=== PATIENT | female | born 1950 ===

== ENCOUNTER 2018-03-27 08:22 | Day surgery (SDC) | payer MEDICARE, MEDICAID ==
[2014-05-23 14:33] VITALS: BMI 30.2
[2018-03-27] MEDS ORDERED: Methylene Blue 10 mg/mL(10ml) IV ONE (10:32)
[2018-03-27] MEDS ORDERED: Bupivacaine 0.25% 20 ML INJ IJ ONE (10:32)
[2018-03-27] MEDS ORDERED: Propofol 10 mg/ml Inj (20 ML) ONE (12:25)
[2018-03-27] MEDS ORDERED: Midazolam 2 MG/2 ML VIAL ONE (12:25)
[2018-03-27] MEDS ORDERED: ceFAZolin 1 gm FROZEN Premix 2 GM/100 ML ML IVPB ONE (12:54)
[2018-03-27] MEDS ORDERED: HYDROmorphone 0.5 mg/0.5 ml ISec IVP PRN (14:26)
[2018-03-27] MEDS ORDERED: Lactated Ringer's 1,000 ML IV SCH (14:30)
[2018-03-27] MEDS ORDERED: Oxycodone/Acetaminophen 5/325 mg Tab PO PRN (14:42)
--- NOTE | 2018-03-27 14:44 | PCM.SURG1 ---
Surgeon's Initial Post Op Note - Surgeon's Notes Surgeon: Dr. Macedo Client Experience Specialist: Dr. Butler PGY3 Type of Anesthesia: General Endo Pre-Operative Diagnosis: R breast invasive ductal CA Operative Findings: see operative report Post-Operative Diagnosis: same Operation Performed: Right partial mastectomy. sentinel node biopsy Specimen/Specimens Removed: right breast mass. sentinel node Estimated Blood Loss: EBL {In ML}: 30 Blood Products Given: N/A Drains Used: No Drains Post-Op Condition: Good Date of Surgery/Procedure: 03/27/18 Time of Surgery/Procedure: 13:00
--- NOTE | 2018-03-27 14:59 | US ---
Date of service: 03/27/2018 HISTORY: field 1 TECHNIQUE/FINDINGS: Timeout was called for ultrasound guided wire needle localization procedure for lesion: In the right breast The mass was identified with ultrasound at the 7 o'clock radiant:. Overlying skin was marked for procedure. In a sterile field, overlying skin was cleaned. 3.75 cc of lidocaine was utilized for skin anesthesia. A 7.5 cm wire was placed and confirmed to be within the mass. Deployment of the micro clip was confirmed. Patient tolerated the procedure well with no complications. Postoperative specimen radiograph demonstrates confirms the presence of the hookwire, mass and micro clip.. OTHER FINDINGS: None. IMPRESSION: Successful needle localization right breast mass 7 o'clock 7 cm from nipple. Postprocedure mammogram confirms successful excision of the micro clip, mass and hookwire.
[2018-03-27] MEDS ORDERED: Lactated Ringer's 1,000 ML IV ONE (15:45)
--- NOTE | 2018-03-27 16:09 | MAM ---
Date of service: 03/27/2018 PROCEDURE: Unilateral mammogram and radiograph right breast specimen HISTORY: POST US GUIDED BREAST BX (RIGHT) COMPARISON: March 27, 2018. TECHNIQUE: Standard protocol for this study/examination. FINDINGS: Confirmation of micro clip deployment at the site of the right breast mass. IMPRESSION: Excisional specimen confirms the presence of the micro clip, mass and hookwire. Final pathology results are pending
[2018-03-27 17:00] VITALS: RESP 16; O2SAT 95
[2018-03-27 17:28] VITALS: BP 128/92; PULSE 75; TEMP 97.6
--- NOTE | 2018-03-29 17:00 | NM ---
Date of service: 03/27/2018 PROCEDURE: [place] nodes scan HISTORY: right breast ca COMPARISON: None TECHNIQUE: Two nerve 50 uCi technetium 99 M filtered sulfur colloid administered in 4 separate aliquots at 12, 3, 6 and 9 o'clock periareolar regions. FINDINGS: [place] node identified the axillary region best seen on the lateral view. IMPRESSION: Successful sentinel node injection with confirmation of axillary node, perhaps 2 lymph nodes.
--- NOTE | 2018-04-02 07:59 | OP ---
PROCEDURE DATE: 03/27/2018 PREOPERATIVE DIAGNOSIS: Invasive carcinoma of right breast. PROCEDURE: Right partial mastectomy, needle localized, intraductal cell carcinoma of the right breast after abnormal mammogram findings. Diagnosis was confirmed with core needle biopsy. INDICATIONS FOR PROCEDURE: Diagnosis and treatment options, risk and benefits were discussed with the patient. She elected to proceed with breast conserving therapy and surgery. DESCRIPTION OF PROCEDURE: The patient was brought back to the operating room. Time-out was performed for preinduction and pre-incision check list, patient, procedure site, and additional critical information prior to beginning of the procedure. After general anesthesia was induced, the patient's right breast was prepped and draped in the usual sterile fashion. After reviewing the local anesthesia and radiography and estimating the trajectory of the needle localization wire, a curvilinear incision was marked at the estimated location of the lesion. Another curvilinear incision was marked over the trajectory of lymph node dissection . Flaps were delivered in its entirety. Dissection was then taken down and circumferentially maintaining the gross tissue containing the needle localization wire intact. No more breast tissue was included with the dissection and the localizing needle was removed in its entirety along with the breast tissue surrounding it. Confirmation of resection of the mass and the entirety of the wire was obtained via the pathologist. Afterwards, the area was irrigated with approximately 50 mL of saline. Care was taken to remove and suction out the amount of saline that was used to irrigate. Following the resection of the mass and removal of the wire, we then moved on to the more superior curvilinear incision, where we dissected all the way down to the region of the lymph nodes, mainly the grade 2 area. Two sentinel lymph nodes were dissected from the interpectoral region. They were sent to Pathology for frozen section. Pathologist confirmed that there was no metastasis or no cancer or cancer source in the lymph nodes that were sent, at which point the decision was made to close the incisions. Both incisions were closed via multiple layers, 3-0 Vicryl was used to close the deep layers and subcutaneous layers of both incisions and 4-0 Monocryl was used to close the skin. Afterwards, the incisions were cleaned appropriately and dried and Steri-Strips were applied to both surgical incision sites. The patient was successfully extubated in the operating room without any complications. The patient was then transferred to the PACU area, where she recovered well with no complications. Micky Butler DO Maxi Macedo MD MTDKatherin
== END 2018-03-27 17:27 | disposition home or self-care (01) ==
LOC: C.SDS 08:22
PROVIDERS: ATTEND Surgery
DX: C50.911 Malignant neoplasm of unspecified site of right female breast (principal)
CPT/HCPCS: 19100; 19285; 19301; 78195; 82948; 88305; 88307; 88331; 88342; A9541; J0690; J2250; J2704; J3010; J7120

== ENCOUNTER 2018-10-01 10:45 | Outpatient (CLI) | payer MEDICARE, MEDICAID | END 2018-10-01 10:46 | disposition home or self-care (01) | LOC: C.MAMMO 10:45 | DX: N64.4 Mastodynia (principal) ==